=== PATIENT | male | born 1950 | race Caucasian/White ===

== ENCOUNTER 2016-10-02 10:30 | Outpatient (CLI) | payer MEDICARE, OTHER ==
[~2016-10-02 10:30] MED LIST: ALBU8.5H2 IH; AMLO5TAB2 PO; ASPI81TA2 PO; ATOR10TA PO; BREX2TAB PO; CLON0.5T4 PO; DOCU250C75 PO; ENAL10TA PO; HYDR-552 PO; METO25TA6 PO; OLAN20TA3 PO; OLAN5TAB3 PO; PANT20TA3 PO; TAMS0.4C34 PO; TRAZ-144 PO; VORT20TA PO
== END 2016-10-02 23:59 | disposition home health service (06) ==
LOC: WOU 10:30
PROVIDERS: ATTEND Podiatrist Foot & Ankle Surgery
DX: Z48.817 Encounter for surgical aftercare following surgery on the skin and subcutaneous tissue (principal); L84 Corns and callosities
CPT/HCPCS: G0463

== ENCOUNTER 2017-01-02 13:35 | Outpatient (CLI) | payer MEDICARE, OTHER | END 2017-01-02 23:59 | disposition home health service (06) | LOC: WOU 13:35 | PROVIDERS: ATTEND Podiatrist Foot & Ankle Surgery | DX: B35.1 Tinea unguium (principal); B35.3 Tinea pedis; F32.9 Major depressive disorder, single episode, unspecified; Z79.899 Other long term (current) drug therapy; L60.3 Nail dystrophy | CPT/HCPCS: G0463 ==

== ENCOUNTER 2017-04-09 10:00 | Outpatient (CLI) | payer MEDICARE, OTHER | END 2017-04-09 23:59 | disposition home health service (06) | LOC: WOU 10:00 | PROVIDERS: ATTEND Podiatrist Foot & Ankle Surgery | DX: B35.1 Tinea unguium (principal); B35.3 Tinea pedis; L85.3 Xerosis cutis; R60.0 Localized edema | CPT/HCPCS: 87102-TC; G0463 ==

== ENCOUNTER 2017-05-16 13:13 | Inpatient (IN) | payer MEDICARE, OTHER ==
[~2017-05-16] VITALS: Ht 175.3 cm; Wt 77.1 kg
--- NOTE | 2017-05-16 04:30 | NUR ---
RN NOTES RECEIVED PT ASLEEP, HOB ELEVATED, NO SOB AND SIGNS OF DISTRESS NOTED. IV ACCESS ON RIGHT AC PATENT AND INTACT WITH ONGOING NS INFUSING WELL. KEPT BED IN THE LOWEST POSITION, LOCKED, SIDE RAILS UP X2 WITH CALL LIGHT WITH IN REACH. SAFETY MEASURES AND DFALL PRECAUTION IN PLACE. WILL CONTINUE TO MONITOR PT. Addendum: 05/17/17 at 9559 by LAYNE LOCKHART RN WRONG TIME OF ENTRY
[~2017-05-16 13:13] MED LIST changes: -ALBU8.5H2 IH; +ALBU8.5H8 IH; +ASPI-1169 PO; -ASPI81TA2 PO; +DOCU250C14 PO; -DOCU250C75 PO
[2017-05-16] MEDS ORDERED: IV NS 0.9% 1,000 ML BAG IV ONE (13:30)
[2017-05-16 13:40] LABS: BASOPHILS % (AUTO) 0.5 % (0.0-2.0); EOSINOPHILS # (AUTO) 0.2 /CMM (0.0-0.7); EOSINOPHILS % (AUTO) 3.4 % (0.0-6.0); HEMATOCRIT 34 % (39-51); HEMOGLOBIN 11.9 g/dL (13.5-17.5); LYMPHOCYTES # (AUTO) 0.9 /CMM (0.8-4.8); LYMPHOCYTES % (AUTO) 14.8 % (20.0-44.0); MEAN CORPUSCULAR HEMOGLOBIN 32 PG (26.0-33.0); MEAN CORPUSCULAR HGB CONC 35 g/dl (31.0-36.0); MEAN CORPUSCULAR VOLUME 89 fL (80-96); MONOCYTES # (AUTO) 0.3 /CMM (0.1-1.30); MONOCYTES % (AUTO) 4.9 % (2.0-12.0); NEUTROPHILS # (AUTO) 4.4 /CMM (1.8-8.9); NEUTROPHILS % (AUTO) 76.4 % (43.0-81.0); PLATELET COUNT (AUTO) 269 /CMM (150-450); RDW COEFFICIENT OF VARIATION 12.6 (11.5-15.0); RED BLOOD CELL COUNT(AUTO) 3.78 MIL/uL (4.5-6.0); WHITE BLOOD COUNT (AUTO) 5.8 K/uL (4.3-11.0)
--- NOTE | 2017-05-16 13:45 | NUR ---
[id number], [id number] FROM [facility]: LOW BLOOD PRESSURE 87/66 IN FIELD. RR IS EVEN AND UNLABORED WITH NAD NOTED. SKIN IS WARM AND DRY. PLACED ON MONITOR. DR MILLARD AT BS FOR EVAL.
[2017-05-16 14:06] LABS: TROPONIN I < 0.017 ng/mL (0.00-0.056)
[2017-05-16 14:10] LABS: ALANINE AMINOTRANSFERASE 31 U/L (12-78); ALBUMIN 3.6 g/dL (3.4-5.0); ALKALINE PHOSPHATASE 79 U/L (46-116); ASPARTATE AMINOTRANSFERASE 19 U/L (15-37); BILIRUBIN,DIRECT 0.1 mg/dL (0.0-0.2); BILIRUBIN,TOTAL 0.5 mg/dL (0.2-1.0); CALCIUM, SERUM 8.8 mg/dL (8.5-10.1); CARBON DIOXIDE 27 mmol/L (21-32); CHLORIDE 101 mmol/L (98-107); CREATININE 1.8 mg/dL (0.6-1.3); GLUCOSE 140 mg/dL (74-106); POTASSIUM 3.6 mmol/L (3.5-5.1); SODIUM SERUM 134 mmol/L (136-145); TOTAL PROTEIN, SERUM 6.7 g/dL (6.4-8.2); UREA NITROGEN, BLOOD 26 mg/dL (7-18)
[2017-05-16] MEDS ORDERED: ALLO100T PO (14:51)
[2017-05-16] MEDS ORDERED: KETO15CR2 TP (14:51)
--- NOTE | 2017-05-16 15:36 | NUR ---
ATTEMPTED TO CALL [facility] GARNICA FOR REPORT, PLACED ON ETERNAL HOLD
--- NOTE | 2017-05-16 16:39 | NUR ---
CALL BACK FROM [facility] GARNICA, REPORT GIVEN FOR HAYDEN
[2017-05-16 16:45] VITALS: BP 126/81
[2017-05-16] MEDS ORDERED: ACETAMINOPHEN 325 MG TABLET PO PRN ×2 (17:00→17:30)
[2017-05-16] MEDS ORDERED: HYDROCODONE/APAP 5/325MG 1 EACH TABLET PO PRN (17:00)
--- NOTE | 2017-05-16 17:00 | NUR ---
ADMISSION NOTES PATIENT ADMITTED FORM ER 67 Y/OLD MALE ON Dx OF HYPOTENSION, BED REST. PATIENT A/O X3, NO RESPIRATORY DISTRESS, V/S TAKEN BP-126/81, P-80, R-16, O2-98 ROOM AIR, T-98.1, PATIENT REFUSED PAIN AT THIS TIME, NO NAUSEA AND VOMITING. BELONGING CHECKED. IV ACCESS ON RIGHT AC AREA INTACT, STARTED NS AT 100 ML/HR. NEEDS ATTENDED ANTICIPATED. PATIENT AMBULATORY. SKIN ASSESSMENT CHECKED, SKIN INTACT. DR ENRIQUEZ AWARE OF NEW PATIENT. CONTINUED MONITORING.
[2017-05-16] MEDS ORDERED: ENOXAPARIN SODIUM 30 MG/0.3 ML DISP.SYRIN SQ SCH (17:30)
[2017-05-16] MEDS ORDERED: CLONIDINE HCL 0.1 MG TABLET PO PRN (17:30)
[2017-05-16] MEDS ORDERED: clonazePAM 0.5 MG TABLET PO PRN (17:30)
[2017-05-16] MEDS ORDERED: IV NS 0.9% 1,000 ML BAG IV SCH (18:00)
[2017-05-16] MEDS ORDERED: CLONIDINE HCL 0.1 MG TABLET PO SCH (18:00)
[2017-05-16] MEDS: IV NS 0.9% 1,000 ML IV PRN (18:27)
[2017-05-16] MEDS: HYDROCODONE/APAP 5/325MG 1 EACH TABLET PO PRN (18:36)
--- NOTE | 2017-05-16 18:36 | NUR ---
RN NOTES ADMINISTERED NARCO 5/325 MG PO PRN FOR GENERALIZED PAIN 11/19 PER PATIENT REQUEST, V/S TAKEN BP-126/81, P-80, CALL LIGHT WITHIN TO REACH , SAFETY PRECAUTION MAINTAINED ALL THE TIME.
--- NOTE | 2017-05-16 19:00 | NUR ---
RN NOTES PATIENT IN THE BED MEDICATION WERE ADMINISTERED FOR PAIN EFFECTIVE, RESTING IN THE BED. CALL LIGHT WITHIN TO REACH, INFUSING NS AT 100 ML/HR INTACT. CONTINUED MONITORING. ENDORSED ONCOMING NURSE FOR HAYDEN.
--- NOTE | 2017-05-16 19:30 | NUR ---
RN NOTES RECEIVED PT ASLEEP, HOB ELEVATED, NO SOB AND SIGNS OF DISTRESS NOTED. IV ACCESS ON RIGHT AC PATENT AND INTACT WITH ONGOING NS INFUSING WELL. KEPT BED IN THE LOWEST POSITION, LOCKED, SIDE RAILS UP X2 WITH CALL LIGHT WITH IN REACH. SAFETY MEASURES AND DFALL PRECAUTION IN PLACE. WILL CONTINUE TO MONITOR PT.
[2017-05-16 20:00] VITALS: BP 114/69
[2017-05-16] MEDS: ATORVASTATIN 10 MG TABLET PO SCH (21:40)
[2017-05-16] MEDS: TRAZODONE 50 MG TABLET PO SCH (21:40)
[2017-05-16] MEDS: ENOXAPARIN SODIUM 30 MG/0.3 ML DISP.SYRIN SQ SCH (21:41)
[2017-05-16 22:00] VITALS: BP 114/69
[2017-05-17] VITALS: BP 139/86
[2017-05-17 04:00] VITALS: BP 140/88
[2017-05-17] MEDS: IV NS 0.9% 1,000 ML IV PRN ×2 (05:04→15:00)
--- NOTE | 2017-05-17 07:25 | NUR ---
RN NOTES PT SLEEP WELL OVERNIGHT, ON ROOM AIR AND TOLERATED WELL. VITAL SIGNS STABLE. DENIES ANY PAIN AND DISCOMFORT. NO EPISODE OF NAUSEA AND VOMITING. ASSISTED TO THE BATHROOM, FALL PRECAUTION OBSERVED. ALL NEEDS ATTENDED. ENDORSED TO MORNING RN FOR CONTINUITY OF CARE.
[2017-05-17 07:33] LABS: BASOPHILS % (AUTO) 0.5 % (0.0-2.0); EOSINOPHILS # (AUTO) 0.4 /CMM (0.0-0.7); EOSINOPHILS % (AUTO) 5.3 % (0.0-6.0); HEMATOCRIT 33 % (39-51); HEMOGLOBIN 11.5 g/dL (13.5-17.5); LYMPHOCYTES # (AUTO) 1.2 /CMM (0.8-4.8); LYMPHOCYTES % (AUTO) 16.5 % (20.0-44.0); MEAN CORPUSCULAR HEMOGLOBIN 32 PG (26.0-33.0); MEAN CORPUSCULAR HGB CONC 35 g/dl (31.0-36.0); MEAN CORPUSCULAR VOLUME 91 fL (80-96); MONOCYTES # (AUTO) 0.4 /CMM (0.1-1.30); MONOCYTES % (AUTO) 6.2 % (2.0-12.0); NEUTROPHILS % (AUTO) 71.5 % (43.0-81.0); PLATELET COUNT (AUTO) 260 /CMM (150-450); RDW COEFFICIENT OF VARIATION 13.6 (11.5-15.0); RED BLOOD CELL COUNT(AUTO) 3.58 MIL/uL (4.5-6.0)
--- NOTE | 2017-05-17 07:52 | NUR ---
PHLEBOTOMY SUPPORT TECH: INITIAL NOTE RECEIVED PT A/OX3. NO DISTRESS NOTED. NO SOB NOTED. NO PAIN NOTED. ON TELE MONITORING WITH SR AND 1ST DEGREE AV BLOCK. PACING AT 76BPM. AMBULATORY. SKIN INTACT. LFA #22 RUNNING NS AT 100ML/HR. SITE CLEAR AND PATENT. RESTING COMFORTABLY IN BED. CALL LIGHT WITHIN REACH.
[2017-05-17 08:00] VITALS: BP 146/84
[2017-05-17 08:20] LABS: CREATININE 1.8 mg/dL (0.6-1.3); POTASSIUM 3.8 mmol/L (3.5-5.1)
[2017-05-17] MEDS: DOCUSATE SODIUM 250 MG CAPSULE PO SCH (08:36)
[2017-05-17] MEDS: ASPIRIN 81 MG TAB.CHEW PO SCH (08:36)
[2017-05-17] MEDS: TAMSULOSIN 0.4 MG CAP.SR.24H PO SCH (08:36)
[2017-05-17] MEDS: PANTOPRAZOLE 40 MG TABLET.DR PO SCH (08:36)
[2017-05-17] MEDS: ALLOPURINOL 100 MG TABLET PO SCH (08:36)
[2017-05-17] MEDS: OLANZAPINE 5 MG TABLET PO SCH (08:36)
[2017-05-17] MEDS: ENALAPRIL MALEATE (10 MG) 10 MG TABLET PO SCH (08:37)
[2017-05-17] MEDS: METOPROLOL TARTRATE 25 MG TABLET PO SCH ×2 (08:37→16:35)
[2017-05-17] MEDS: AMLODIPINE BESYLATE 5 MG TABLET PO SCH (08:37)
[2017-05-17 08:52] LABS: IRON, SERUM 85 ug/dl (50-175); TOTAL IRON BINDING CAPACITY 225 ug/dl (250-450)
[2017-05-17] MEDS ORDERED: ASPIRIN 81 MG TAB.CHEW PO SCH ×2 (09:00)
[2017-05-17 11:03] VITALS: BP_SYST 130; BP_SYST 145; BP_SYST 149; BP_DIAS 100; BP_DIAS 89
[2017-05-17 11:18] LABS: ALANINE AMINOTRANSFERASE 30 U/L (12-78); ALBUMIN 3.5 g/dL (3.4-5.0); ALKALINE PHOSPHATASE 75 U/L (46-116); ASPARTATE AMINOTRANSFERASE 21 U/L (15-37); BILIRUBIN,DIRECT 0.1 mg/dL (0.0-0.2); BILIRUBIN,TOTAL 0.3 mg/dL (0.2-1.0); MAGNESIUM 1.9 mg/dL (1.8-2.4); TOTAL PROTEIN, SERUM 6.6 g/dL (6.4-8.2)
[2017-05-17 15:50] LABS: CHOLESTEROL 104 mg/dL (<200); FERRITIN 126 ng/mL (8-388); HDL CHOLESTEROL 47 mg/dL (40-60); LDL 46 mg/dL (0-99); THYROID STIMULATING HORMONE 0.717 uIU/mL (0.358-3.74); TRIGLYCERIDES 75 mg/dL (30-150); TROPONIN I < 0.017 ng/mL (0.00-0.056)
--- NOTE | 2017-05-17 18:41 | NUR ---
MS RN: CLOSING NOTE PT A/OX4. TOOK ALL MEDICATIONS ON TIME. NO ADVERSE REACTIONS NOTED. NO PAIN NOTED. NO SOB NOTED. NOW MS. BRP/ USES URINAL. AMBULATORY. SKIN INTACT. L FA #22 RUNNING NS AT 125ML/HR. RESTING COMFORTABLY IN BED. CALL LIGHT WITHIN REACH.
--- NOTE | 2017-05-17 19:25 | NUR ---
RN NOTES RECEIVED PT AWAKE, HOB ELEVATED, ON ROOM AIR AND TOLERATED WELL. PT ALERT AND ORIENTED X3, DENIES ANY PAIN AND DISCOMFORT. IV ACCESS ON LEFT FOREARM PATENT AND INTACT WITH ONGOING IVF INFUSING WELL. SAFETY MEASURES AND FALL PRECAUTION OBSERVED. PLAN OF CARE DISCUSSED WITH THE PT. WILL CONTINUE TO MONITOR PT.
[2017-05-17 20:00] VITALS: BP 143/83
[2017-05-17] MEDS: ATORVASTATIN 10 MG TABLET PO SCH (21:38)
[2017-05-17] MEDS: TRAZODONE 50 MG TABLET PO SCH (21:38)
[2017-05-17] MEDS: ENOXAPARIN SODIUM 30 MG/0.3 ML DISP.SYRIN SQ SCH (21:39)
[2017-05-17 22:00] VITALS: BP 143/83
[2017-05-18] MEDS: IV NS 0.9% 1,000 ML IV PRN ×2 (00:45→11:22)
--- NOTE | 2017-05-18 07:40 | NUR ---
RN NOTES PT AWAKE, DENIES ANY PAIN AND DISCOMFORT. VITAL SIGNS STABLE. NO SIGNIFICANT CHANGE IN CONDITION OVERNIGHT. FALL PRECAUTION OBSERVED. ENDORSED TO MORNING RN FOR CONTINUITY OF CARE.
[2017-05-18 08:00] VITALS: BP 155/90
[2017-05-18 08:08] LABS: EOSINOPHILS # (AUTO) 0.3 /CMM (0.0-0.7); EOSINOPHILS % (AUTO) 5.2 % (0.0-6.0); HEMATOCRIT 33 % (39-51); HEMOGLOBIN 11.4 g/dL (13.5-17.5); MEAN CORPUSCULAR HEMOGLOBIN 32 PG (26.0-33.0); MEAN CORPUSCULAR HGB CONC 35 g/dl (31.0-36.0); MEAN CORPUSCULAR VOLUME 91 fL (80-96); MONOCYTES # (AUTO) 0.3 /CMM (0.1-1.30); MONOCYTES % (AUTO) 4.2 % (2.0-12.0); NEUTROPHILS # (AUTO) 4.5 /CMM (1.8-8.9); NEUTROPHILS % (AUTO) 73.6 % (43.0-81.0); PLATELET COUNT (AUTO) 248 /CMM (150-450); RDW COEFFICIENT OF VARIATION 13.4 (11.5-15.0); RED BLOOD CELL COUNT(AUTO) 3.58 MIL/uL (4.5-6.0); WHITE BLOOD COUNT (AUTO) 6.1 K/uL (4.3-11.0)
--- NOTE | 2017-05-18 08:08 | NUR ---
RN-NOTES' RECEIVED PATIENT AWAKE,ALERT LAYING IN HIS BED WATCHING TV,NO ACUTE DISTRESS NOTED. PATIENT ON IV FLUID AT 125ML/HR. IV SITE ON LEFT ARM NO S/SX OF COMPLICATION NOTED ON IV SITE. PATIENT IS CALM AND COOPERATIVE. WILL CONT. MONITORING.
[2017-05-18 08:22] LABS: TROPONIN I < 0.017 ng/mL (0.00-0.056)
[2017-05-18 08:24] LABS: ALANINE AMINOTRANSFERASE 30 U/L (12-78); ALBUMIN 3.7 g/dL (3.4-5.0); ALKALINE PHOSPHATASE 76 U/L (46-116); ASPARTATE AMINOTRANSFERASE 18 U/L (15-37); BILIRUBIN,TOTAL 0.4 mg/dL (0.2-1.0); CALCIUM, SERUM 9.1 mg/dL (8.5-10.1); CARBON DIOXIDE 23 mmol/L (21-32); CHLORIDE 106 mmol/L (98-107); CREATININE 1.6 mg/dL (0.6-1.3); GLUCOSE 139 mg/dL (74-106); MAGNESIUM 1.6 mg/dL (1.8-2.4); PHOSPHORUS 1.9 mg/dL (2.5-4.9); POTASSIUM 3.3 mmol/L (3.5-5.1); SODIUM SERUM 141 mmol/L (136-145); TOTAL PROTEIN, SERUM 6.9 g/dL (6.4-8.2); UREA NITROGEN, BLOOD 16 mg/dL (7-18)
[2017-05-18] MEDS: PANTOPRAZOLE 40 MG TABLET.DR PO SCH (08:34)
[2017-05-18] MEDS: OLANZAPINE 5 MG TABLET PO SCH (09:07)
[2017-05-18] MEDS: DOCUSATE SODIUM 250 MG CAPSULE PO SCH (09:07)
[2017-05-18] MEDS: ALLOPURINOL 100 MG TABLET PO SCH (09:08)
[2017-05-18] MEDS: METOPROLOL TARTRATE 25 MG TABLET PO SCH ×2 (09:08→17:27)
[2017-05-18] MEDS: TAMSULOSIN 0.4 MG CAP.SR.24H PO SCH (09:08)
[2017-05-18] MEDS: ASPIRIN 81 MG TAB.CHEW PO SCH (09:08)
[2017-05-18] MEDS: ENALAPRIL MALEATE (10 MG) 10 MG TABLET PO SCH (09:09)
[2017-05-18] MEDS: AMLODIPINE BESYLATE 5 MG TABLET PO SCH (09:09)
[2017-05-18] MEDS ORDERED: POTASSIUM PHOSPHATE MM 15 MMOL in IV D5W 250 ML IV SCH (10:30)
[2017-05-18] MEDS ORDERED: POTASSIUM PHOSPHATE MM 7.5 MMOL in IV D5W 100 ML IV SCH (11:00)
[2017-05-18] MEDS: HYDROCODONE/APAP 5/325MG 1 EACH TABLET PO PRN (11:04)
[2017-05-18] MEDS: Magnesium 1GM/D5W 100ML PREMIX 100 ML IV SCH ×2 (11:27→12:55)
[2017-05-18 16:00] VITALS: BP 145/90
--- NOTE | 2017-05-18 19:40 | NUR ---
RN OPENING NOTES PT RESTING IN BED. NO PAIN, DISTRESS OR SOB NOTED AT THIS TIME. PT HAS A LEFT FOREARM IV, FLUIDS RUNNING NS AT 125 ML/HR. PT TOLERATING WELL. PT IS AMBULATORY, PREFERS TO USE URINAL. SAFETY PRECAUTIONS IN PLACE. BED IN LOW LOCKED POSITION, [id number] UP. CALL LIGHT WITHIN REACH. WILL CONTINUE TO MONITOR.
[2017-05-18 20:00] VITALS: BP 135/86
--- NOTE | 2017-05-18 20:00 | NUR ---
RN-NOTES PATIENT LAYING IN HIS BED INTERMITTENTLY SLEEPING.NO ACUTE DISTRESS NOTED. STILL ON IV FLUID ,INFUSING WELL .WELL TOLERATED. ALL NEEDS ATTENDED AND ANTICIPATED. ENDORSE TO NIGHT NURSE FOR CONT. OF CARE.
[2017-05-18] MEDS: TRAZODONE 50 MG TABLET PO SCH (21:30)
[2017-05-18] MEDS: ATORVASTATIN 10 MG TABLET PO SCH (21:30)
[2017-05-18] MEDS: ENOXAPARIN SODIUM 30 MG/0.3 ML DISP.SYRIN SQ SCH (21:31)
[2017-05-19] MEDS: IV NS 0.9% 1,000 ML IV PRN (02:26)
--- NOTE | 2017-05-19 07:20 | NUR ---
RN NOTES PT IS LAYING DOWN IN BED RESTING COMFORTABLY. PT ON RA, RESPIRATIONS ARE EVEN AND UNLABORED. IV ON LFA INTACT AND PATENT. NO SIGNS OF DISTRESS NOTED. SAFETY MEASURES ARE IN PLACE, CALL LIGHT IS IN REACH. WILL CONTINUE TO MONITOR.
--- NOTE | 2017-05-19 07:37 | NUR ---
RN CLOSING NOTES PT RESTING IN BED. NO PAIN, DISTRESS OR SOB NOTED AT THIS TIME. PT HAS A LEFT FOREARM IV, FLUIDS RUNNING NS AT 125 ML/HR. PT TOLERATING WELL. PT IS AMBULATORY, PREFERS TO USE URINAL. SAFETY PRECAUTIONS IN PLACE. BED IN LOW LOCKED POSITION, [id number] UP. CALL LIGHT WITHIN REACH. WILL ENDORSE TO DAY SHIFT NURSE FOR CONTINUITY OF CARE.
[2017-05-19 08:00] VITALS: BP 160/98
[2017-05-19] MEDS: PANTOPRAZOLE 40 MG TABLET.DR PO SCH (08:18)
[2017-05-19] MEDS: ASPIRIN 81 MG TAB.CHEW PO SCH (08:18)
[2017-05-19] MEDS: TAMSULOSIN 0.4 MG CAP.SR.24H PO SCH (08:18)
[2017-05-19] MEDS: DOCUSATE SODIUM 250 MG CAPSULE PO SCH (08:18)
[2017-05-19] MEDS: ALLOPURINOL 100 MG TABLET PO SCH (08:19)
[2017-05-19] MEDS: METOPROLOL TARTRATE 25 MG TABLET PO SCH ×2 (08:19→16:00)
[2017-05-19] MEDS: AMLODIPINE BESYLATE 5 MG TABLET PO SCH (08:19)
[2017-05-19] MEDS: ENALAPRIL MALEATE (10 MG) 10 MG TABLET PO SCH (08:19)
[2017-05-19] MEDS: OLANZAPINE 5 MG TABLET PO SCH (08:20)
[2017-05-19 08:37] LABS: BASOPHILS % (AUTO) 0.2 % (0.0-2.0); EOSINOPHILS # (AUTO) 0.2 /CMM (0.0-0.7); EOSINOPHILS % (AUTO) 2.4 % (0.0-6.0); HEMATOCRIT 33 % (39-51); HEMOGLOBIN 11.5 g/dL (13.5-17.5); LYMPHOCYTES # (AUTO) 1.1 /CMM (0.8-4.8); LYMPHOCYTES % (AUTO) 13.6 % (20.0-44.0); MEAN CORPUSCULAR HEMOGLOBIN 32 PG (26.0-33.0); MEAN CORPUSCULAR HGB CONC 35 g/dl (31.0-36.0); MEAN CORPUSCULAR VOLUME 91 fL (80-96); MONOCYTES # (AUTO) 0.4 /CMM (0.1-1.30); MONOCYTES % (AUTO) 4.6 % (2.0-12.0); NEUTROPHILS # (AUTO) 6.4 /CMM (1.8-8.9); NEUTROPHILS % (AUTO) 79.2 % (43.0-81.0); PLATELET COUNT (AUTO) 269 /CMM (150-450); RDW COEFFICIENT OF VARIATION 13.4 (11.5-15.0); RED BLOOD CELL COUNT(AUTO) 3.61 MIL/uL (4.5-6.0); WHITE BLOOD COUNT (AUTO) 8.1 K/uL (4.3-11.0)
[2017-05-19 08:49] LABS: ALBUMIN 3.7 g/dL (3.4-5.0); BILIRUBIN,TOTAL 0.6 mg/dL (0.2-1.0); CALCIUM, SERUM 9.3 mg/dL (8.5-10.1); CREATININE 1.6 mg/dL (0.6-1.3); PHOSPHORUS 3.2 mg/dL (2.5-4.9); POTASSIUM 4.1 mmol/L (3.5-5.1); TOTAL PROTEIN, SERUM 6.9 g/dL (6.4-8.2)
[2017-05-19 16:00] VITALS: BP 158/95
--- NOTE | 2017-05-19 16:32 | NUR ---
RN NOTES PT WAS DISCHARGED TO [facility] IN STABLE CONDITION. ALL MEDICATIONS WERE GIVEN ORDERED. IV AND ID BAND WERE REMOVED. DISCHARGE PAPERS WERE SIGNED AND GIVEN TO PATIENT. PT WAS INFORMED TO FOLLOW UP WITH PCP WITHIN 3-5 DAYS. PT VERBALIZED UNDERSTANDING. ALL BELONGINGS WERE RETURNED TO PT.
== END 2017-05-19 16:25 | DRG 73 ==
LOC: ER 13:15 → TELE 15:37 → MED 05-17 10:38
PROVIDERS: ADMIT Legal Medicine; ATTEND Legal Medicine
DX: G90.8 Other disorders of autonomic nervous system (principal); N17.0 Acute kidney failure with tubular necrosis; I95.9 Hypotension, unspecified; I13.0 Hypertensive heart and chronic kidney disease with heart failure and stage 1 through stage 4 chronic kidney disease, or unspecified chronic kidney disease; E83.39 Other disorders of phosphorus metabolism; E83.42 Hypomagnesemia; J44.9 Chronic obstructive pulmonary disease, unspecified; F20.9 Schizophrenia, unspecified; I50.32 Chronic diastolic (congestive) heart failure; E86.9 Volume depletion, unspecified; N18.3 Chronic kidney disease, stage 3 (moderate); D64.9 Anemia, unspecified; R55 Syncope and collapse; F32.9 Major depressive disorder, single episode, unspecified; I10 Essential (primary) hypertension; M10.9 Gout, unspecified; N40.0 Benign prostatic hyperplasia without lower urinary tract symptoms; E87.6 Hypokalemia; I25.10 Atherosclerotic heart disease of native coronary artery without angina pectoris; K21.9 Gastro-esophageal reflux disease without esophagitis; Z79.899 Other long term (current) drug therapy
CPT/HCPCS: 36415; 71045-TC; 80048-TC; 80053-TC; 80061-TC; 80076-TC; 82306; 82728-TC; 83540-TC; 83735-TC; 84100-TC; 84439-TC; 84443-TC; 84484-TC; 84550-TC; 85025-TC; 87081-TC; 93307-TC; A4606; J1650; J3475; J3490; J7030; J7060; Z7610

== ENCOUNTER 2017-05-21 10:16 | Outpatient (CLI) | payer MEDICARE, OTHER ==
[~2017-05-21 10:16] MED LIST changes: -ALBU8.5H8 IH; +ALLO100T PO; -BREX2TAB PO; +KETO15CR2 TP; -OLAN20TA3 PO; -VORT20TA PO
== END 2017-05-21 23:59 | disposition home health service (06) ==
LOC: WOU 10:16
PROVIDERS: ATTEND Podiatrist Foot & Ankle Surgery
DX: B35.1 Tinea unguium (principal); B35.3 Tinea pedis
CPT/HCPCS: G0463

== ENCOUNTER 2017-06-25 10:00 | Outpatient (CLI) | payer MEDICARE, OTHER | END 2017-06-25 23:59 | disposition home health service (06) | LOC: WOU 10:00 | PROVIDERS: ATTEND Specialist | DX: M19.072 Primary osteoarthritis, left ankle and foot (principal); F25.1 Schizoaffective disorder, depressive type; B35.1 Tinea unguium | CPT/HCPCS: G0463 ==

== ENCOUNTER 2017-07-23 09:38 | Outpatient (CLI) | payer MEDICARE, OTHER | END 2017-07-23 23:59 | disposition home health service (06) | LOC: WOU 09:38 | PROVIDERS: ATTEND Podiatrist Foot & Ankle Surgery | DX: B35.1 Tinea unguium (principal); B35.3 Tinea pedis; R60.0 Localized edema; M20.22 Hallux rigidus, left foot; M20.21 Hallux rigidus, right foot | CPT/HCPCS: G0463 ==

== ENCOUNTER 2017-08-20 09:15 | Outpatient (CLI) | payer MEDICARE, OTHER ==
[~2017-08-20 09:15] MED LIST changes: -AMLO5TAB2 PO; +AMLO5TAB7 PO; +CLON0.5T12 PO; -CLON0.5T4 PO; -TRAZ-144 PO; +TRAZ-182 PO
== END 2017-08-20 23:59 | disposition home health service (06) ==
LOC: WOU 09:15
PROVIDERS: ATTEND Podiatrist Foot & Ankle Surgery
DX: B35.1 Tinea unguium (principal); B35.3 Tinea pedis; L60.3 Nail dystrophy; M79.672 Pain in left foot; M79.671 Pain in right foot
CPT/HCPCS: G0463

== ENCOUNTER 2017-10-15 10:05 | Outpatient (CLI) | payer MEDICARE, OTHER | END 2017-10-15 23:59 | disposition home health service (06) | LOC: WOU 10:05 | PROVIDERS: ATTEND Podiatrist Foot & Ankle Surgery | DX: B35.1 Tinea unguium (principal); B35.3 Tinea pedis; M79.672 Pain in left foot; M79.671 Pain in right foot | CPT/HCPCS: G0463 ==

== ENCOUNTER 2017-10-17 10:29 | Outpatient (CLI) | payer MEDICARE, OTHER | END 2017-10-17 23:59 | disposition home or self-care (01) | LOC: RAD 10:29 | PROVIDERS: ATTEND Podiatrist Foot & Ankle Surgery | DX: M19.071 Primary osteoarthritis, right ankle and foot (principal); M85.871 Other specified disorders of bone density and structure, right ankle and foot; M77.31 Calcaneal spur, right foot | CPT/HCPCS: 73630-TC ==

== ENCOUNTER 2017-10-29 09:38 | Outpatient (CLI) | payer MEDICARE, OTHER | END 2017-10-29 23:59 | disposition home health service (06) | LOC: WOU 09:38 | PROVIDERS: ATTEND Podiatrist Foot & Ankle Surgery | DX: B35.1 Tinea unguium (principal); B35.3 Tinea pedis; M19.071 Primary osteoarthritis, right ankle and foot; R60.0 Localized edema | CPT/HCPCS: G0463; Z7610 ==

== ENCOUNTER 2017-11-26 09:30 | Outpatient (CLI) | payer MEDICARE, OTHER ==
[~2017-11-26 09:30] MED LIST changes: +AMLO5TAB2 PO; -AMLO5TAB7 PO
== END 2017-11-26 23:59 | disposition home health service (06) ==
LOC: WOU 09:30
PROVIDERS: ATTEND Podiatrist Foot & Ankle Surgery
DX: B35.1 Tinea unguium (principal); M79.671 Pain in right foot; M79.672 Pain in left foot; M19.072 Primary osteoarthritis, left ankle and foot; F25.1 Schizoaffective disorder, depressive type; F32.9 Major depressive disorder, single episode, unspecified
CPT/HCPCS: G0463; Z7610

== ENCOUNTER 2018-01-28 09:46 | Outpatient (CLI) | payer MEDICARE, OTHER ==
[~2018-01-28 09:46] MED LIST changes: -AMLO5TAB2 PO; +AMLO5TAB7 PO
== END 2018-01-28 23:59 | disposition home health service (06) ==
LOC: WOU 09:46
PROVIDERS: ATTEND Podiatrist Foot & Ankle Surgery
DX: B35.1 Tinea unguium (principal); L60.0 Ingrowing nail; M79.676 Pain in unspecified toe(s)
CPT/HCPCS: G0463; Z7610

== ENCOUNTER 2018-06-10 08:48 | Outpatient (CLI) | payer MEDICARE, OTHER ==
[~2018-06-10 08:48] MED LIST changes: -AMLO5TAB7 PO; +AMLO5TAB9 PO; +HYDR-4384 PO; -HYDR-552 PO
== END 2018-06-10 23:59 | disposition home health service (06) ==
LOC: WOU 08:48
PROVIDERS: ATTEND Podiatrist Foot & Ankle Surgery
DX: B35.1 Tinea unguium (principal); B35.3 Tinea pedis; M79.672 Pain in left foot; M79.671 Pain in right foot; R60.9 Edema, unspecified
CPT/HCPCS: G0463; Z7610

== ENCOUNTER 2018-07-15 09:30 | Outpatient (CLI) | payer MEDICARE, OTHER | END 2018-07-15 23:59 | disposition home health service (06) | LOC: WOU 09:30 | PROVIDERS: ATTEND Podiatrist Foot & Ankle Surgery | DX: B35.1 Tinea unguium (principal); B35.3 Tinea pedis; M79.672 Pain in left foot; M79.671 Pain in right foot; Z79.82 Long term (current) use of aspirin; Z79.891 Long term (current) use of opiate analgesic | CPT/HCPCS: G0463 ==

== ENCOUNTER 2018-09-16 09:45 | Outpatient (CLI) | payer MEDICARE, OTHER | END 2018-09-16 23:59 | disposition home health service (06) | LOC: WOU 09:45 | PROVIDERS: ATTEND Podiatrist Foot & Ankle Surgery | DX: B35.1 Tinea unguium (principal); M79.672 Pain in left foot; M79.671 Pain in right foot; M19.072 Primary osteoarthritis, left ankle and foot; Z79.899 Other long term (current) drug therapy | CPT/HCPCS: 36569; G0463 ==

== ENCOUNTER 2023-10-09 10:30 | Inpatient (IN) | payer MEDICARE, OTHER ==
[~2023-10-09] VITALS: Ht 175.3 cm; Wt 66.2 kg
[~2023-10-09 10:30] MED LIST changes: +AMLO-212 PO; -AMLO5TAB9 PO; -CLON0.5T12 PO; +CLON0.5T4 PO; -ENAL10TA PO; +ENAL10TA39 PO; +PANT20TA17 PO; -PANT20TA3 PO
[2023-10-09] MEDS: IV NS 0.9% 500 ML BAG IV ONE (10:51)
[2023-10-09 11:07] LABS: BASOPHILS % (AUTO) 0.5 % (0.0-2.0); EOSINOPHILS # (AUTO) 0.5 K/uL (0.0-0.7); EOSINOPHILS % (AUTO) 5.3 % (0.0-6.0); HEMATOCRIT 30 % (39-51); HEMOGLOBIN 10.2 g/dL (13.5-17.5); LYMPHOCYTES # (AUTO) 1.2 K/uL (0.8-4.8); LYMPHOCYTES % (AUTO) 13.4 % (20.0-44.0); MEAN CORPUSCULAR HEMOGLOBIN 32 PG (26.0-33.0); MEAN CORPUSCULAR HGB CONC 34 g/dl (31.0-36.0); MEAN CORPUSCULAR VOLUME 93 fL (80-96); MONOCYTES # (AUTO) 0.8 K/uL (0.1-1.30); MONOCYTES % (AUTO) 8.7 % (2.0-12.0); NEUTROPHILS # (AUTO) 6.6 K/uL (1.8-8.9); NEUTROPHILS % (AUTO) 72.1 % (43.0-81.0); PLATELET COUNT (AUTO) 209 K/uL (150-450); RED BLOOD CELL COUNT(AUTO) 3.24 MIL/uL (4.5-6.0); RED CELL DISTRIBUTION WIDTH 13.4 % (11.5-15.0); WHITE BLOOD COUNT (AUTO) 9.2 K/uL (4.3-11.0)
[2023-10-09 11:17] LABS: CALCIUM, SERUM 8.7 mg/dL (8.5-10.1); CARBON DIOXIDE 26 mmol/L (21-32); CHLORIDE 105 mmol/L (98-107); CREATININE 3.1 mg/dL (0.6-1.3); GLUCOSE 96 mg/dL (74-106); POTASSIUM 3.7 mmol/L (3.5-5.1); SODIUM SERUM 137 mmol/L (136-145); UREA NITROGEN, BLOOD 46 mg/dL (7-18)
[2023-10-09] MEDS ORDERED: TRAZ-257 PO (13:40)
[2023-10-09] MEDS ORDERED: DOCU100C36 PO (13:40)
[2023-10-09] MEDS ORDERED: CYCL10TA9 PO (13:40)
[2023-10-09] MEDS ORDERED: AMAN100T PO (13:40)
[2023-10-09] MEDS ORDERED: PANT40TA2 PO (13:40)
[2023-10-09] MEDS ORDERED: SENN8.6T19 PO (13:40)
[2023-10-09] MEDS ORDERED: METO50TA16 PO (13:40)
[2023-10-09] MEDS ORDERED: TRAM50TA2 PO (13:40)
[2023-10-09] MEDS ORDERED: FURO-145 PO (13:40)
[2023-10-09] MEDS ORDERED: TADA5TAB13 PO (13:40)
[2023-10-09] MEDS ORDERED: OLAN10TA3 PO (13:40)
[2023-10-09] MEDS ORDERED: MIRT-90 PO (13:40)
[2023-10-09] MEDS ORDERED: FERR325T28 PO (13:40)
[2023-10-09] MEDS: IV NS 0.9% 1,000 ML BAG IV ONE (15:38)
[2023-10-09 16:00] VITALS: BP 165/96; TEMP 98.6; O2SAT 98
[2023-10-09] MEDS ORDERED: ZOLPIDEM TARTRATE 5 MG TABLET PO PRN (17:30)
[2023-10-09] MEDS ORDERED: MAGNESIUM HYDROXIDE 30 ML UDC PO PRN (17:30)
[2023-10-09] MEDS ORDERED: Z GUARD REMEDY 4 OZ OINT TP PRN (17:30)
[2023-10-09] MEDS ORDERED: ONDANSETRON HCL/PF 4 MG/2 ML VIAL IVP PRN (17:30)
[2023-10-09] MEDS ORDERED: MAG HYDROX/AL HYDROX/SIMETH 30 ML UDC PO PRN (17:30)
[2023-10-09] MEDS: IV 1/2NS 1000 ML 1,000 ML IV PRN (18:08)
[2023-10-09 20:00] VITALS: BP 141/91; TEMP 98.9; O2SAT 98
[2023-10-09] MEDS: ACETAMINOPHEN 325 MG TABLET PO PRN (20:48)
[2023-10-10] VITALS: BP 122/84; TEMP 98.1; O2SAT 98
[2023-10-10 04:00] VITALS: BP 118/82; TEMP 98.2; O2SAT 98
[2023-10-10 07:12] LABS: THYROID STIMULATING HORMONE 0.749 uIU/mL (0.358-3.74)
[2023-10-10 07:14] LABS: BASOPHILS % (AUTO) 0.3 % (0.0-2.0); EOSINOPHILS # (AUTO) 0.2 K/uL (0.0-0.7); EOSINOPHILS % (AUTO) 1.7 % (0.0-6.0); HEMATOCRIT 29 % (39-51); HEMOGLOBIN 9.9 g/dL (13.5-17.5); LYMPHOCYTES # (AUTO) 1.2 K/uL (0.8-4.8); LYMPHOCYTES % (AUTO) 9.7 % (20.0-44.0); MEAN CORPUSCULAR HEMOGLOBIN 32 PG (26.0-33.0); MEAN CORPUSCULAR HGB CONC 34 g/dl (31.0-36.0); MEAN CORPUSCULAR VOLUME 93 fL (80-96); MONOCYTES # (AUTO) 1.2 K/uL (0.1-1.30); MONOCYTES % (AUTO) 9.9 % (2.0-12.0); NEUTROPHILS # (AUTO) 9.7 K/uL (1.8-8.9); NEUTROPHILS % (AUTO) 78.4 % (43.0-81.0); PLATELET COUNT (AUTO) 196 K/uL (150-450); RED BLOOD CELL COUNT(AUTO) 3.14 MIL/uL (4.5-6.0); RED CELL DISTRIBUTION WIDTH 13.6 % (11.5-15.0); WHITE BLOOD COUNT (AUTO) 12.3 K/uL (4.3-11.0)
[2023-10-10 07:22] LABS: CALCIUM, SERUM 8.9 mg/dL (8.5-10.1); CARBON DIOXIDE 23 mmol/L (21-32); CHLORIDE 106 mmol/L (98-107); CREATININE 2.9 mg/dL (0.6-1.3); GLUCOSE 104 mg/dL (74-106); MAGNESIUM 1.9 mg/dL (1.8-2.4); PHOSPHORUS 3.6 mg/dL (2.5-4.9); POTASSIUM 3.7 mmol/L (3.5-5.1); SODIUM SERUM 140 mmol/L (136-145); UREA NITROGEN, BLOOD 37 mg/dL (7-18)
[2023-10-10] MEDS: PANTOPRAZOLE 40 MG TABLET.DR PO SCH (07:50)
[2023-10-10 08:00] VITALS: BP 149/97; TEMP 98.8; O2SAT 97
[2023-10-10] MEDS ORDERED: CYCLOBENZAPRINE 10 MG TABLET PO PRN (09:30)
[2023-10-10] MEDS ORDERED: Medication Not On Formulary EA (Tadalafil 5 MG) PO PRN (09:30)
[2023-10-10 11:24] LABS: APPEARANCE,URINE CLOUDY (CLEAR); BILIRUBIN,URINE NEGATIVE (NEGATIVE); BLOOD, URINE 1+ Ery/uL (NEGATIVE); COLOR,URINE YELLOW (YELLOW); KETONES,URINE NEGATIVE (NEGATIVE); LEUKOCYTE ESTERASE ,URINE 2+ (NEGATIVE); NITRITE, URINE NEGATIVE (NEGATIVE); PROTEIN,URINE TRACE mg/dl (NEGATIVE); UGLUCOSE NEGATIVE (NEGATIVE); UROBILINOGEN,URINE 0.2 EU/dL (0.2)
[2023-10-10 12:00] VITALS: BP 137/84; TEMP 98.8; O2SAT 97
[2023-10-10 12:14] LABS: ADD URINE CULTURE YES; BACTERIA,URINE Few /HPF (None Seen); SQUAMOUS EPITHELIAL CELL,UR Rare /HPF (None Seen)
[2023-10-10 16:00] VITALS: BP 128/76; TEMP 98.8; O2SAT 97
[2023-10-10] MEDS: DOCUSATE SODIUM 100 MG CAPSULE PO SCH (16:15)
[2023-10-10] MEDS: FERROUS SULFATE (325 MG) 325 MG/TAB TABLET PO SCH (16:15)
[2023-10-10] MEDS: AMANTADINE HCL 100 MG CAPSULE PO SCH (16:16)
[2023-10-10] MEDS: OLANZAPINE 10 MG TABLET PO SCH (16:16)
[2023-10-10] MEDS: METOPROLOL TARTRATE 50 MG TABLET PO SCH (16:44)
[2023-10-10] MEDS: AMLODIPINE BESYLATE 5 MG TABLET PO SCH (16:45)
[2023-10-10 20:00] VITALS: BP 120/77; TEMP 98.4; O2SAT 97
[2023-10-10] MEDS: SENNOSIDES 8.6 MG TABLET PO SCH (21:36)
[2023-10-10] MEDS: TRAZODONE 50 MG TABLET PO SCH (21:36)
[2023-10-10] MEDS: ATORVASTATIN 10 MG TABLET PO SCH (21:36)
[2023-10-10] MEDS: MIRTAZAPINE 15 MG TABLET PO SCH (21:36)
[2023-10-11] VITALS: BP 152/88; TEMP 99.7; O2SAT 98
[2023-10-11 04:00] VITALS: BP 143/88; TEMP 99.5; O2SAT 98
[2023-10-11] MEDS: TRAMADOL HCL 50 MG TABLET PO PRN (06:38)
[2023-10-11 06:41] LABS: BASOPHILS % (AUTO) 0.2 % (0.0-2.0); EOSINOPHILS # (AUTO) 0.3 K/uL (0.0-0.7); EOSINOPHILS % (AUTO) 2.4 % (0.0-6.0); HEMATOCRIT 30 % (39-51); HEMOGLOBIN 10.4 g/dL (13.5-17.5); LYMPHOCYTES # (AUTO) 1.4 K/uL (0.8-4.8); LYMPHOCYTES % (AUTO) 10.8 % (20.0-44.0); MEAN CORPUSCULAR HEMOGLOBIN 32 PG (26.0-33.0); MEAN CORPUSCULAR HGB CONC 35 g/dl (31.0-36.0); MEAN CORPUSCULAR VOLUME 93 fL (80-96); MONOCYTES # (AUTO) 1.1 K/uL (0.1-1.30); MONOCYTES % (AUTO) 8.6 % (2.0-12.0); NEUTROPHILS # (AUTO) 9.9 K/uL (1.8-8.9); PLATELET COUNT (AUTO) 192 K/uL (150-450); RED BLOOD CELL COUNT(AUTO) 3.22 MIL/uL (4.5-6.0); RED CELL DISTRIBUTION WIDTH 13.5 % (11.5-15.0); WHITE BLOOD COUNT (AUTO) 12.7 K/uL (4.3-11.0)
[2023-10-11 06:58] LABS: ALANINE AMINOTRANSFERASE 30 U/L (12-78); ALBUMIN 2.6 g/dL (3.4-5.0); ALKALINE PHOSPHATASE 102 U/L (46-116); ASPARTATE AMINOTRANSFERASE 22 U/L (15-37); BILIRUBIN,TOTAL 0.6 mg/dL (0.2-1.0); CALCIUM, SERUM 9.4 mg/dL (8.5-10.1); CARBON DIOXIDE 23 mmol/L (21-32); CHLORIDE 106 mmol/L (98-107); CREATININE 2.7 mg/dL (0.6-1.3); GLUCOSE 104 mg/dL (74-106); PHOSPHORUS 3.2 mg/dL (2.5-4.9); POTASSIUM 3.9 mmol/L (3.5-5.1); SODIUM SERUM 140 mmol/L (136-145); TOTAL PROTEIN, SERUM 6.9 g/dL (6.4-8.2); UREA NITROGEN, BLOOD 34 mg/dL (7-18)
[2023-10-11] MEDS ORDERED: PANTOPRAZOLE 40 MG TABLET.DR PO SCH (07:30)
[2023-10-11 08:00] VITALS: BP 134/86; TEMP 97.9; O2SAT 98
[2023-10-11 09:23] LABS: IRON, SERUM 12 ug/dl (50-175); TOTAL IRON BINDING CAPACITY 159 ug/dl (250-450)
[2023-10-11] MEDS: CEFTRIAXONE 1 G in IV D5W 50 ML IV SCH (10:39)
[2023-10-11 12:00] VITALS: BP 134/86; TEMP 97.9; O2SAT 98
[2023-10-11 12:52] LABS: FERRITIN 643 ng/mL (8-388)
[2023-10-11 16:00] VITALS: BP 127/77; TEMP 97.3; O2SAT 98
[2023-10-11 20:00] VITALS: BP 113/70; TEMP 98.2; O2SAT 98
[2023-10-12 04:00] VITALS: BP 133/87; TEMP 98.4; O2SAT 97
[2023-10-12 06:52] LABS: BASOPHILS % (AUTO) 0.3 % (0.0-2.0); EOSINOPHILS # (AUTO) 0.6 K/uL (0.0-0.7); EOSINOPHILS % (AUTO) 7.1 % (0.0-6.0); HEMATOCRIT 32 % (39-51); HEMOGLOBIN 10.6 g/dL (13.5-17.5); LYMPHOCYTES # (AUTO) 1.2 K/uL (0.8-4.8); LYMPHOCYTES % (AUTO) 14.9 % (20.0-44.0); MEAN CORPUSCULAR HEMOGLOBIN 32 PG (26.0-33.0); MEAN CORPUSCULAR HGB CONC 34 g/dl (31.0-36.0); MEAN CORPUSCULAR VOLUME 93 fL (80-96); MONOCYTES # (AUTO) 0.6 K/uL (0.1-1.30); MONOCYTES % (AUTO) 7.5 % (2.0-12.0); NEUTROPHILS # (AUTO) 5.5 K/uL (1.8-8.9); NEUTROPHILS % (AUTO) 70.2 % (43.0-81.0); PLATELET COUNT (AUTO) 240 K/uL (150-450); RED BLOOD CELL COUNT(AUTO) 3.37 MIL/uL (4.5-6.0); RED CELL DISTRIBUTION WIDTH 13.6 % (11.5-15.0); WHITE BLOOD COUNT (AUTO) 7.9 K/uL (4.3-11.0)
[2023-10-12 06:57] LABS: ALANINE AMINOTRANSFERASE 39 U/L (12-78); ALBUMIN 2.5 g/dL (3.4-5.0); ALKALINE PHOSPHATASE 99 U/L (46-116); ASPARTATE AMINOTRANSFERASE 21 U/L (15-37); BILIRUBIN,TOTAL 0.4 mg/dL (0.2-1.0); CALCIUM, SERUM 9.6 mg/dL (8.5-10.1); CARBON DIOXIDE 21 mmol/L (21-32); CHLORIDE 107 mmol/L (98-107); CREATINE KINASE, TOTAL 69 U/L (39-308); CREATININE 2.4 mg/dL (0.6-1.3); GLUCOSE 103 mg/dL (74-106); MAGNESIUM 2.2 mg/dL (1.8-2.4); PHOSPHORUS 3.6 mg/dL (2.5-4.9); SODIUM SERUM 141 mmol/L (136-145); TOTAL PROTEIN, SERUM 7.1 g/dL (6.4-8.2); UREA NITROGEN, BLOOD 35 mg/dL (7-18)
[2023-10-12 08:00] VITALS: BP 145/85; TEMP 97.7; O2SAT 98
[2023-10-12 16:00] VITALS: BP 130/76; TEMP 97.6; O2SAT 98
[2023-10-12 20:00] VITALS: BP 128/72; TEMP 97.7; O2SAT 98
[2023-10-13] VITALS (9 sets, daily range): BP systolic 124–144; BP diastolic 81–97; TEMP 97.5–98.2; O2SAT 96–98
[2023-10-13 06:23] LABS: BASOPHILS # (AUTO) 0.1 K/uL (0.0-0.2); BASOPHILS % (AUTO) 0.8 % (0.0-2.0); EOSINOPHILS # (AUTO) 0.6 K/uL (0.0-0.7); EOSINOPHILS % (AUTO) 7.8 % (0.0-6.0); HEMATOCRIT 31 % (39-51); HEMOGLOBIN 10.4 g/dL (13.5-17.5); LYMPHOCYTES # (AUTO) 1.1 K/uL (0.8-4.8); LYMPHOCYTES % (AUTO) 13.8 % (20.0-44.0); MEAN CORPUSCULAR HEMOGLOBIN 32 PG (26.0-33.0); MEAN CORPUSCULAR HGB CONC 34 g/dl (31.0-36.0); MEAN CORPUSCULAR VOLUME 94 fL (80-96); MONOCYTES # (AUTO) 0.4 K/uL (0.1-1.30); MONOCYTES % (AUTO) 5.5 % (2.0-12.0); NEUTROPHILS # (AUTO) 5.6 K/uL (1.8-8.9); NEUTROPHILS % (AUTO) 72.1 % (43.0-81.0); PLATELET COUNT (AUTO) 300 K/uL (150-450); RED BLOOD CELL COUNT(AUTO) 3.26 MIL/uL (4.5-6.0); RED CELL DISTRIBUTION WIDTH 13.7 % (11.5-15.0); WHITE BLOOD COUNT (AUTO) 7.8 K/uL (4.3-11.0)
[2023-10-13 07:41] LABS: CALCIUM, SERUM 9.5 mg/dL (8.5-10.1); CARBON DIOXIDE 16 mmol/L (21-32); CHLORIDE 106 mmol/L (98-107); CREATININE 2.3 mg/dL (0.6-1.3); GLUCOSE 97 mg/dL (74-106); MAGNESIUM 2.3 mg/dL (1.8-2.4); PHOSPHORUS 3.8 mg/dL (2.5-4.9); POTASSIUM 4.2 mmol/L (3.5-5.1); SODIUM SERUM 138 mmol/L (136-145); UREA NITROGEN, BLOOD 39 mg/dL (7-18)
[2023-10-13 09:06] LABS: PTH, INTACT 83 pg/mL (15-65)
[2023-10-13 09:27] LABS: ALANINE AMINOTRANSFERASE 65 U/L (12-78); ALBUMIN 2.7 g/dL (3.4-5.0); ALKALINE PHOSPHATASE 96 U/L (46-116); ASPARTATE AMINOTRANSFERASE 53 U/L (15-37); BILIRUBIN,TOTAL 0.4 mg/dL (0.2-1.0); TOTAL PROTEIN, SERUM 7.3 g/dL (6.4-8.2)
[2023-10-13] MEDS: PHENAZOPYRIDINE HCL 200 MG TABLET PO PRN (16:04)
[2023-10-14 04:00] VITALS: BP 138/86; TEMP 97.5; O2SAT 97
[2023-10-14 06:32] VITALS: BP_SYST 127; BP_SYST 138; BP_SYST 143; BP_DIAS 82; BP_DIAS 86; BP_DIAS 97; O2SAT 91; O2SAT 97; O2SAT 98
[2023-10-14 06:43] LABS: BASOPHILS % (AUTO) 0.3 % (0.0-2.0); EOSINOPHILS # (AUTO) 0.2 K/uL (0.0-0.7); EOSINOPHILS % (AUTO) 2.3 % (0.0-6.0); HEMATOCRIT 31 % (39-51); HEMOGLOBIN 10.4 g/dL (13.5-17.5); LYMPHOCYTES # (AUTO) 1.2 K/uL (0.8-4.8); LYMPHOCYTES % (AUTO) 12.6 % (20.0-44.0); MEAN CORPUSCULAR HEMOGLOBIN 32 PG (26.0-33.0); MEAN CORPUSCULAR HGB CONC 34 g/dl (31.0-36.0); MEAN CORPUSCULAR VOLUME 94 fL (80-96); MONOCYTES # (AUTO) 0.4 K/uL (0.1-1.30); MONOCYTES % (AUTO) 4.4 % (2.0-12.0); NEUTROPHILS # (AUTO) 7.8 K/uL (1.8-8.9); NEUTROPHILS % (AUTO) 80.4 % (43.0-81.0); PLATELET COUNT (AUTO) 286 K/uL (150-450); RED BLOOD CELL COUNT(AUTO) 3.26 MIL/uL (4.5-6.0); RED CELL DISTRIBUTION WIDTH 13.3 % (11.5-15.0); WHITE BLOOD COUNT (AUTO) 9.7 K/uL (4.3-11.0)
[2023-10-14 07:00] LABS: CARBON DIOXIDE 22 mmol/L (21-32); CHLORIDE 105 mmol/L (98-107); CREATININE 2.8 mg/dL (0.6-1.3); GLUCOSE 98 mg/dL (74-106); MAGNESIUM 2.1 mg/dL (1.8-2.4); PHOSPHORUS 3.9 mg/dL (2.5-4.9); POTASSIUM 3.8 mmol/L (3.5-5.1); SODIUM SERUM 136 mmol/L (136-145); UREA NITROGEN, BLOOD 39 mg/dL (7-18)
[2023-10-14] MEDS: ENSURE ENLIVE 237 ML LIQUID (VANILLA) PO SCH (09:22)
[2023-10-14 10:06] VITALS: BP 152/94; TEMP 98.2; O2SAT 97
[2023-10-14] MEDS ORDERED: CIPR500S3 PO (10:13)
[2023-10-14 14:07] LABS: *SPE A/G RATIO 0.8 (0.7-1.7); *SPE ALBUMIN 2.8 g/dL (2.9-4.4); *SPE ALPHA-1-GLOBULIN 0.5 g/dL (0.0-0.4); *SPE BETA GLOBULIN 0.8 g/dL (0.7-1.3); *SPE GLOBULIN, TOTAL 3.5 g/dL (2.2-3.9); *SPE M-SPIKE Not Observed g/dL (Not Observed); *SPE PROTEIN TOTAL 6.3 g/dL (6.0-8.5); *SPEGAMMA GLOBULIN 1.1 g/dL (0.4-1.8)
== END 2023-10-14 16:34 | DRG 640 ==
LOC: ER 10:40 → TELE1 15:01 → MEDSG1 10-11 20:53
PROVIDERS: ADMIT Student in an Organized Health Care Education/Training Program; ATTEND Student in an Organized Health Care Education/Training Program
DX: E86.0 Dehydration (principal); N17.0 Acute kidney failure with tubular necrosis; I13.0 Hypertensive heart and chronic kidney disease with heart failure and stage 1 through stage 4 chronic kidney disease, or unspecified chronic kidney disease; N39.0 Urinary tract infection, site not specified; N18.4 Chronic kidney disease, stage 4 (severe); E86.9 Volume depletion, unspecified; I50.9 Heart failure, unspecified; I95.1 Orthostatic hypotension; I25.10 Atherosclerotic heart disease of native coronary artery without angina pectoris; K21.9 Gastro-esophageal reflux disease without esophagitis; M89.8X9 Other specified disorders of bone, unspecified site; N40.0 Benign prostatic hyperplasia without lower urinary tract symptoms; Z88.0 Allergy status to penicillin; B96.1 Klebsiella pneumoniae [K. pneumoniae] as the cause of diseases classified elsewhere; E78.5 Hyperlipidemia, unspecified; M19.90 Unspecified osteoarthritis, unspecified site; N40.1 Benign prostatic hyperplasia with lower urinary tract symptoms; M62.81 Muscle weakness (generalized); D50.9 Iron deficiency anemia, unspecified
CPT/HCPCS: 36415; 71045-TC; 76700-TC; 80048-TC; 80053-TC; 81001; 82550-TC; 82728-TC; 82962-TC; 83540-TC; 83735-TC; 83970; 84100-TC; 84155; 84165; 84443-TC; 84484-TC; 85025-TC; 87081-TC; 87086-TC; 93307-TC; 97112-TC; 97116-TC; 97530-TC; A4223; G0378; J0696; J3490; J7030; J7040; J7060

== ENCOUNTER 2024-08-03 13:36 | Inpatient (IN) | payer MEDICARE, OTHER ==
[~2024-08-03] VITALS: Ht 167.6 cm; Wt 54.4 kg
[~2024-08-03 13:36] MED LIST changes: -ALLO100T PO; +AMAN100T PO; -ASPI-1169 PO; +CIPR500S3 PO; -CLON0.5T4 PO; +CYCL10TA9 PO; +DOCU100C36 PO; -DOCU250C14 PO; -ENAL10TA39 PO; +FERR325T28 PO; +FURO-145 PO; -HYDR-4384 PO; -KETO15CR2 TP; -METO25TA6 PO; +METO50TA16 PO; +MIRT-90 PO; +OLAN10TA3 PO; -OLAN5TAB3 PO; -PANT20TA17 PO; +PANT40TA2 PO; +SENN8.6T19 PO; +TADA5TAB13 PO; -TAMS0.4C34 PO; +TRAM50TA2 PO; -TRAZ-182 PO; +TRAZ-257 PO
[2024-08-03 14:45] LABS: BASOPHILS % (AUTO) 0.4 % (0.0-2.0); EOSINOPHILS # (AUTO) 0.5 K/uL (0.0-0.7); EOSINOPHILS % (AUTO) 6.2 % (0.0-6.0); HEMATOCRIT 31 % (39-51); HEMOGLOBIN 10.4 g/dL (13.5-17.5); LYMPHOCYTES # (AUTO) 1.2 K/uL (0.8-4.8); LYMPHOCYTES % (AUTO) 14.4 % (20.0-44.0); MEAN CORPUSCULAR HEMOGLOBIN 31 PG (26.0-33.0); MEAN CORPUSCULAR HGB CONC 34 g/dl (31.0-36.0); MEAN CORPUSCULAR VOLUME 91 fL (80-96); MONOCYTES # (AUTO) 0.9 K/uL (0.1-1.30); MONOCYTES % (AUTO) 10.2 % (2.0-12.0); NEUTROPHILS # (AUTO) 5.8 K/uL (1.8-8.9); NEUTROPHILS % (AUTO) 68.8 % (43.0-81.0); PLATELET COUNT (AUTO) 262 K/uL (150-450); RED BLOOD CELL COUNT(AUTO) 3.35 MIL/uL (4.5-6.0); RED CELL DISTRIBUTION WIDTH 13.8 % (11.5-15.0); WHITE BLOOD COUNT (AUTO) 8.4 K/uL (4.3-11.0)
[2024-08-03 14:48] LABS: ALANINE AMINOTRANSFERASE 62 U/L (12-78); ALBUMIN 3.9 g/dL (3.4-5.0); ALKALINE PHOSPHATASE 102 U/L (46-116); ASPARTATE AMINOTRANSFERASE 32 U/L (15-37); BILIRUBIN,DIRECT 0.1 mg/dL (0.0-0.2); BILIRUBIN,TOTAL 0.4 mg/dL (0.2-1.0); CALCIUM, SERUM 9.2 mg/dL (8.5-10.1); CARBON DIOXIDE 20 mmol/L (21-32); CHLORIDE 103 mmol/L (98-107); CREATININE 4.1 mg/dL (0.6-1.3); GLUCOSE 109 mg/dL (74-106); POTASSIUM 4.1 mmol/L (3.5-5.1); SODIUM SERUM 137 mmol/L (136-145); TOTAL PROTEIN, SERUM 7.6 g/dL (6.4-8.2); UREA NITROGEN, BLOOD 73 mg/dL (7-18)
[2024-08-03] MEDS ORDERED: ASCO500T10 PO (14:50)
[2024-08-03] MEDS ORDERED: TAMS-12 PO (14:50)
[2024-08-03] MEDS ORDERED: TRAZ-182 PO (14:50)
[2024-08-03] MEDS ORDERED: ACET325T53 PO (14:50)
[2024-08-03] MEDS ORDERED: GABA-532 PO (14:50)
[2024-08-03] MEDS: IV NS 0.9% 1,000 ML BAG IV ONE (15:00)
[2024-08-03 16:22] LABS: APPEARANCE,URINE CLEAR (CLEAR); BILIRUBIN,URINE NEGATIVE (NEGATIVE); BLOOD, URINE 1+ Ery/uL (NEGATIVE); COLOR,URINE YELLOW (YELLOW); KETONES,URINE NEGATIVE (NEGATIVE); LEUKOCYTE ESTERASE ,URINE NEGATIVE (NEGATIVE); NITRITE, URINE NEGATIVE (NEGATIVE); PROTEIN,URINE TRACE mg/dl (NEGATIVE); UGLUCOSE NEGATIVE (NEGATIVE); UROBILINOGEN,URINE 0.2 EU/dL (0.2)
[2024-08-03 16:29] LABS: WBC,URINE 0-2 /HPF (0-3)
[2024-08-03 16:30] LABS: ADD URINE CULTURE NO; BACTERIA,URINE None seen /HPF (None Seen); SQUAMOUS EPITHELIAL CELL,UR 0-2 /HPF (None Seen)
[2024-08-03] MEDS ORDERED: ONDANSETRON HCL/PF 4 MG/2 ML VIAL IVP PRN (16:30)
[2024-08-03] MEDS ORDERED: MAG HYDROX/AL HYDROX/SIMETH 30 ML UDC PO PRN (16:30)
[2024-08-03] MEDS ORDERED: MAGNESIUM HYDROXIDE 30 ML UDC PO PRN (16:30)
[2024-08-03 20:00] VITALS: BP 172/110; TEMP 98.2; O2SAT 99
[2024-08-03 21:30] VITALS: BP 172/110; TEMP 98.2; O2SAT 99
[2024-08-03] MEDS: ACETAMINOPHEN 325 MG TABLET PO PRN (22:00)
[2024-08-03] MEDS ORDERED: CYCLOBENZAPRINE 10 MG TABLET PO PRN (22:30)
[2024-08-03] MEDS: SENNOSIDES 8.6 MG TABLET PO SCH (22:50)
[2024-08-03] MEDS: ATORVASTATIN 10 MG TABLET PO SCH (22:51)
[2024-08-03] MEDS: AMANTADINE HCL 100 MG CAPSULE PO SCH (22:52)
[2024-08-03] MEDS: AMLODIPINE BESYLATE 5 MG TABLET PO SCH (22:52)
[2024-08-03] MEDS: METOPROLOL TARTRATE 50 MG TABLET PO SCH (22:52)
[2024-08-03] MEDS: TAMSULOSIN 0.4 MG CAP.SR.24H PO SCH (22:52)
[2024-08-03] MEDS: TRAZODONE 50 MG TABLET PO SCH (22:53)
[2024-08-03] MEDS: MIRTAZAPINE 15 MG TABLET PO SCH (22:53)
[2024-08-04] VITALS: BP 155/96; TEMP 98.2; O2SAT 98
[2024-08-04 04:00] VITALS: BP 126/96; TEMP 98.1; O2SAT 96
[2024-08-04] MEDS ORDERED: PANTOPRAZOLE 40 MG TABLET.DR PO SCH (07:30)
[2024-08-04 07:46] LABS: BASOPHILS % (AUTO) 0.2 % (0.0-2.0); EOSINOPHILS # (AUTO) 0.1 K/uL (0.0-0.7); EOSINOPHILS % (AUTO) 1.3 % (0.0-6.0); HEMATOCRIT 30 % (39-51); HEMOGLOBIN 10.2 g/dL (13.5-17.5); LYMPHOCYTES # (AUTO) 0.9 K/uL (0.8-4.8); LYMPHOCYTES % (AUTO) 9.3 % (20.0-44.0); MEAN CORPUSCULAR HEMOGLOBIN 31 PG (26.0-33.0); MEAN CORPUSCULAR HGB CONC 35 g/dl (31.0-36.0); MEAN CORPUSCULAR VOLUME 90 fL (80-96); MONOCYTES # (AUTO) 0.6 K/uL (0.1-1.30); MONOCYTES % (AUTO) 5.7 % (2.0-12.0); NEUTROPHILS # (AUTO) 8.4 K/uL (1.8-8.9); NEUTROPHILS % (AUTO) 83.5 % (43.0-81.0); PLATELET COUNT (AUTO) 240 K/uL (150-450); RED BLOOD CELL COUNT(AUTO) 3.28 MIL/uL (4.5-6.0); RED CELL DISTRIBUTION WIDTH 13.5 % (11.5-15.0); WHITE BLOOD COUNT (AUTO) 10.1 K/uL (4.3-11.0)
[2024-08-04 08:00] VITALS: BP 160/110; TEMP 99; O2SAT 96
[2024-08-04 08:06] LABS: CALCIUM, SERUM 9.9 mg/dL (8.5-10.1); CREATININE 3.9 mg/dL (0.6-1.3); MAGNESIUM 2.2 mg/dL (1.8-2.4); PHOSPHORUS 4.7 mg/dL (2.5-4.9); POTASSIUM 4.2 mmol/L (3.5-5.1)
[2024-08-04] MEDS: OLANZAPINE 10 MG TABLET PO SCH (08:30)
[2024-08-04] MEDS: GABAPENTIN 100 MG CAPSULE PO SCH (08:30)
[2024-08-04] MEDS: PANTOPRAZOLE 40 MG VIAL IV SCH (08:30)
[2024-08-04] MEDS: FERROUS SULFATE (325 MG) 325 MG/TAB TABLET PO SCH (08:30)
[2024-08-04] MEDS: ASCORBIC ACID 500 MG TABLET PO SCH (08:30)
[2024-08-04] MEDS: DOCUSATE SODIUM 100 MG CAPSULE PO SCH (08:30)
[2024-08-04] MEDS: MINERAL OIL/PETROL OINT 396 GM JAR TP SCH (09:49)
[2024-08-04] MEDS: IV NS 0.9% 1,000 ML IV ONE (14:21)
[2024-08-04 16:00] VITALS: BP 167/100; TEMP 98.1; O2SAT 98
[2024-08-04 20:00] VITALS: BP 152/86; TEMP 98.2; O2SAT 99
[2024-08-04 20:27] LABS: CREATININE, URINE 40.6 MG/DL (30.0-125.0); URINE TOTAL PROTEIN 94.1 mg/dL (0-11.9)
[2024-08-05 07:30] LABS: BASOPHILS % (AUTO) 0.5 % (0.0-2.0); EOSINOPHILS # (AUTO) 0.4 K/uL (0.0-0.7); EOSINOPHILS % (AUTO) 4.5 % (0.0-6.0); HEMATOCRIT 31 % (39-51); HEMOGLOBIN 10.6 g/dL (13.5-17.5); LYMPHOCYTES # (AUTO) 1.1 K/uL (0.8-4.8); LYMPHOCYTES % (AUTO) 11.6 % (20.0-44.0); MEAN CORPUSCULAR HEMOGLOBIN 31 PG (26.0-33.0); MEAN CORPUSCULAR HGB CONC 34 g/dl (31.0-36.0); MEAN CORPUSCULAR VOLUME 91 fL (80-96); MONOCYTES # (AUTO) 0.7 K/uL (0.1-1.30); MONOCYTES % (AUTO) 7.2 % (2.0-12.0); NEUTROPHILS % (AUTO) 76.2 % (43.0-81.0); PLATELET COUNT (AUTO) 225 K/uL (150-450); RED BLOOD CELL COUNT(AUTO) 3.41 MIL/uL (4.5-6.0); RED CELL DISTRIBUTION WIDTH 13.9 % (11.5-15.0); WHITE BLOOD COUNT (AUTO) 9.2 K/uL (4.3-11.0)
[2024-08-05 07:33] LABS: ALBUMIN 3.6 g/dL (3.4-5.0); BILIRUBIN,TOTAL 0.5 mg/dL (0.2-1.0); CALCIUM, SERUM 9.7 mg/dL (8.5-10.1); CREATININE 3.5 mg/dL (0.6-1.3); PHOSPHORUS 3.8 mg/dL (2.5-4.9); POTASSIUM 3.9 mmol/L (3.5-5.1); TOTAL PROTEIN, SERUM 7.4 g/dL (6.4-8.2)
[2024-08-05 08:00] VITALS: BP 156/102; TEMP 98.1; O2SAT 97
[2024-08-05] MEDS: IV NS 0.9% 1,000 ML IV ONE (10:57)
[2024-08-05 16:00] VITALS: BP 150/90; TEMP 98.2; O2SAT 98
[2024-08-05 20:00] VITALS: BP 164/89; TEMP 98.1; O2SAT 98
[2024-08-06] MEDS: TRAMADOL HCL 50 MG TABLET PO PRN (00:11)
[2024-08-06 06:07] LABS: PTH, INTACT 52 pg/mL (15-65)
[2024-08-06 06:36] LABS: BASOPHILS % (AUTO) 0.5 % (0.0-2.0); EOSINOPHILS # (AUTO) 0.5 K/uL (0.0-0.7); EOSINOPHILS % (AUTO) 7.1 % (0.0-6.0); HEMATOCRIT 31 % (39-51); HEMOGLOBIN 10.4 g/dL (13.5-17.5); LYMPHOCYTES # (AUTO) 1.2 K/uL (0.8-4.8); LYMPHOCYTES % (AUTO) 18.8 % (20.0-44.0); MEAN CORPUSCULAR HEMOGLOBIN 31 PG (26.0-33.0); MEAN CORPUSCULAR HGB CONC 34 g/dl (31.0-36.0); MEAN CORPUSCULAR VOLUME 91 fL (80-96); MONOCYTES # (AUTO) 0.5 K/uL (0.1-1.30); MONOCYTES % (AUTO) 8.2 % (2.0-12.0); NEUTROPHILS # (AUTO) 4.3 K/uL (1.8-8.9); NEUTROPHILS % (AUTO) 65.4 % (43.0-81.0); PLATELET COUNT (AUTO) 213 K/uL (150-450); RED BLOOD CELL COUNT(AUTO) 3.36 MIL/uL (4.5-6.0); RED CELL DISTRIBUTION WIDTH 13.8 % (11.5-15.0); WHITE BLOOD COUNT (AUTO) 6.6 K/uL (4.3-11.0)
[2024-08-06 07:08] LABS: ALBUMIN 3.4 g/dL (3.4-5.0); BILIRUBIN,TOTAL 0.4 mg/dL (0.2-1.0); CALCIUM, SERUM 9.7 mg/dL (8.5-10.1); CREATININE 3.4 mg/dL (0.6-1.3); PHOSPHORUS 3.8 mg/dL (2.5-4.9); TOTAL PROTEIN, SERUM 7.1 g/dL (6.4-8.2)
[2024-08-06 08:00] VITALS: BP 150/96; TEMP 98.1; O2SAT 97
[2024-08-06] MEDS: PANTOPRAZOLE 40 MG TABLET.DR PO SCH (09:15)
[2024-08-06] MEDS: CITRIC ACID/SODIUM CITRATE (BICITRA)15 ML UDC PO SCH (13:20)
[2024-08-06 16:00] VITALS: BP 139/96; TEMP 97.7; O2SAT 99
[2024-08-06 20:00] VITALS: BP 165/85; TEMP 98.1; O2SAT 98
[2024-08-07] MEDS: IV NS 0.9% 1,000 ML IV PRN (02:33)
[2024-08-07 07:54] LABS: BASOPHILS % (AUTO) 0.6 % (0.0-2.0); EOSINOPHILS # (AUTO) 0.5 K/uL (0.0-0.7); EOSINOPHILS % (AUTO) 7.6 % (0.0-6.0); HEMATOCRIT 31 % (39-51); HEMOGLOBIN 10.4 g/dL (13.5-17.5); LYMPHOCYTES # (AUTO) 1.1 K/uL (0.8-4.8); LYMPHOCYTES % (AUTO) 15.4 % (20.0-44.0); MEAN CORPUSCULAR HEMOGLOBIN 31 PG (26.0-33.0); MEAN CORPUSCULAR HGB CONC 34 g/dl (31.0-36.0); MEAN CORPUSCULAR VOLUME 92 fL (80-96); MONOCYTES # (AUTO) 0.7 K/uL (0.1-1.30); MONOCYTES % (AUTO) 10.3 % (2.0-12.0); NEUTROPHILS # (AUTO) 4.5 K/uL (1.8-8.9); NEUTROPHILS % (AUTO) 66.1 % (43.0-81.0); PLATELET COUNT (AUTO) 240 K/uL (150-450); RED BLOOD CELL COUNT(AUTO) 3.37 MIL/uL (4.5-6.0); RED CELL DISTRIBUTION WIDTH 13.8 % (11.5-15.0); WHITE BLOOD COUNT (AUTO) 6.8 K/uL (4.3-11.0)
[2024-08-07 08:00] VITALS: BP 170/95; TEMP 98.6; O2SAT 98
[2024-08-07 08:00] LABS: CALCIUM, SERUM 9.6 mg/dL (8.5-10.1); CREATININE 3.2 mg/dL (0.6-1.3); POTASSIUM 4.8 mmol/L (3.5-5.1)
[2024-08-07] MEDS: CITRIC ACID/SODIUM CITRATE (BICITRA)15 ML UDC PO SCH (12:11)
[2024-08-07 20:00] VITALS: BP 127/88; TEMP 98.3; O2SAT 98
[2024-08-08 04:00] VITALS: BP 135/81; TEMP 97.8; O2SAT 97
[2024-08-08 08:00] VITALS: BP 208/118; TEMP 98.1; O2SAT 96
[2024-08-08 16:00] VITALS: BP 166/93; TEMP 98.1; O2SAT 94
[2024-08-08 16:18] LABS: BASOPHILS % (AUTO) 0.7 % (0.0-2.0); EOSINOPHILS # (AUTO) 0.4 K/uL (0.0-0.7); EOSINOPHILS % (AUTO) 6.4 % (0.0-6.0); HEMATOCRIT 30 % (39-51); HEMOGLOBIN 10.3 g/dL (13.5-17.5); LYMPHOCYTES # (AUTO) 0.7 K/uL (0.8-4.8); LYMPHOCYTES % (AUTO) 12.3 % (20.0-44.0); MEAN CORPUSCULAR HEMOGLOBIN 31 PG (26.0-33.0); MEAN CORPUSCULAR HGB CONC 34 g/dl (31.0-36.0); MEAN CORPUSCULAR VOLUME 90 fL (80-96); MONOCYTES # (AUTO) 0.6 K/uL (0.1-1.30); MONOCYTES % (AUTO) 10.2 % (2.0-12.0); NEUTROPHILS # (AUTO) 4.2 K/uL (1.8-8.9); NEUTROPHILS % (AUTO) 70.4 % (43.0-81.0); PLATELET COUNT (AUTO) 236 K/uL (150-450); RED BLOOD CELL COUNT(AUTO) 3.35 MIL/uL (4.5-6.0); RED CELL DISTRIBUTION WIDTH 14.1 % (11.5-15.0); WHITE BLOOD COUNT (AUTO) 5.9 K/uL (4.3-11.0)
[2024-08-08 16:48] LABS: ALBUMIN 3.5 g/dL (3.4-5.0); BILIRUBIN,TOTAL 0.4 mg/dL (0.2-1.0); CALCIUM, SERUM 9.7 mg/dL (8.5-10.1); CREATININE 3.4 mg/dL (0.6-1.3); MAGNESIUM 2.1 mg/dL (1.8-2.4); PHOSPHORUS 4.4 mg/dL (2.5-4.9); POTASSIUM 4.5 mmol/L (3.5-5.1); TOTAL PROTEIN, SERUM 7.2 g/dL (6.4-8.2)
[2024-08-08 20:00] VITALS: BP 140/90; TEMP 97.9; O2SAT 98
[2024-08-09] VITALS: BP 123/62; TEMP 99.5; O2SAT 99
[2024-08-09 07:43] LABS: BASOPHILS % (AUTO) 0.7 % (0.0-2.0); EOSINOPHILS # (AUTO) 0.5 K/uL (0.0-0.7); EOSINOPHILS % (AUTO) 8.5 % (0.0-6.0); HEMATOCRIT 30 % (39-51); HEMOGLOBIN 10.4 g/dL (13.5-17.5); LYMPHOCYTES # (AUTO) 1.1 K/uL (0.8-4.8); LYMPHOCYTES % (AUTO) 19.2 % (20.0-44.0); MEAN CORPUSCULAR HEMOGLOBIN 31 PG (26.0-33.0); MEAN CORPUSCULAR HGB CONC 35 g/dl (31.0-36.0); MEAN CORPUSCULAR VOLUME 91 fL (80-96); MONOCYTES # (AUTO) 0.6 K/uL (0.1-1.30); MONOCYTES % (AUTO) 11.3 % (2.0-12.0); NEUTROPHILS # (AUTO) 3.3 K/uL (1.8-8.9); NEUTROPHILS % (AUTO) 60.3 % (43.0-81.0); PLATELET COUNT (AUTO) 251 K/uL (150-450); RED BLOOD CELL COUNT(AUTO) 3.33 MIL/uL (4.5-6.0); RED CELL DISTRIBUTION WIDTH 13.7 % (11.5-15.0); WHITE BLOOD COUNT (AUTO) 5.5 K/uL (4.3-11.0)
[2024-08-09 07:56] LABS: CALCIUM, SERUM 9.7 mg/dL (8.5-10.1); CREATININE 3.1 mg/dL (0.6-1.3); MAGNESIUM 2.1 mg/dL (1.8-2.4); PHOSPHORUS 3.7 mg/dL (2.5-4.9); POTASSIUM 4.3 mmol/L (3.5-5.1)
[2024-08-09 08:36] VITALS: BP 138/67; TEMP 98.2; O2SAT 96
[2024-08-09 08:48] VITALS: BP 138/67
[2024-08-09] MEDS ORDERED: CITR15SO PO (12:00)
[2024-08-13 06:11] LABS: *SPE A/G RATIO 1.2 (0.7-1.7); *SPE ALBUMIN 3.6 g/dL (2.9-4.4); *SPE ALPHA-1-GLOBULIN 0.3 g/dL (0.0-0.4); *SPE ALPHA-2-GLOBULIN 0.7 g/dL (0.4-1.0); *SPE BETA GLOBULIN 0.8 g/dL (0.7-1.3); *SPE GLOBULIN, TOTAL 3.1 g/dL (2.2-3.9); *SPE M-SPIKE Not Observed g/dL (Not Observed); *SPE PROTEIN TOTAL 6.7 g/dL (6.0-8.5); *SPEGAMMA GLOBULIN 1.3 g/dL (0.4-1.8)
== END 2024-08-09 15:15 | DRG 683 ==
LOC: ER 13:42 → TRANSITION 16:18 → TELE 19:12 → MED 08-04 10:57
PROVIDERS: ATTEND Student in an Organized Health Care Education/Training Program
DX: N17.9 Acute kidney failure, unspecified (principal); E87.20 Acidosis, unspecified; I13.0 Hypertensive heart and chronic kidney disease with heart failure and stage 1 through stage 4 chronic kidney disease, or unspecified chronic kidney disease; I50.32 Chronic diastolic (congestive) heart failure; I25.10 Atherosclerotic heart disease of native coronary artery without angina pectoris; G20.A1 Parkinson's disease without dyskinesia, without mention of fluctuations; E78.5 Hyperlipidemia, unspecified; E86.1 Hypovolemia; E83.9 Disorder of mineral metabolism, unspecified; R29.6 Repeated falls; R26.89 Other abnormalities of gait and mobility; M62.81 Muscle weakness (generalized); K21.9 Gastro-esophageal reflux disease without esophagitis; N40.0 Benign prostatic hyperplasia without lower urinary tract symptoms; Z87.440 Personal history of urinary (tract) infections; N18.4 Chronic kidney disease, stage 4 (severe); Z20.822 Contact with and (suspected) exposure to COVID-19; D64.9 Anemia, unspecified; Z88.0 Allergy status to penicillin
CPT/HCPCS: 36415; 70450-TC; 71045-TC; 72125-TC; 72170-TC; 76770-TC; 80048-TC; 80053-TC; 80076-TC; 81001; 82550-TC; 82570-TC; 83735-TC; 83880; 83970; 84100-TC; 84155; 84165; 84300-TC; 84443-TC; 84484-TC; 85025-TC; 87081-TC; 87086-TC; 93307-TC; 97110-TC; 97112-TC; 97116-TC; 97530-TC; 97535-TC; A4223; G0378; J2470; J7030; L0172